=== PATIENT | female | born 1980 ===

== ENCOUNTER 2016-09-19 19:12 | Emergency (ER) | payer OTHER ==
[2016-09-19 19:28] VITALS: BP 121/84; PULSE 59; RESP 14; TEMP 98.2; O2SAT 99
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
== END 2016-09-19 19:50 | disposition home or self-care (01) ==
LOC: CED 19:12
DX: M54.5 Low back pain (principal); V49.40XA Driver injured in collision with unspecified motor vehicles in traffic accident, initial encounter; Y92.410 Unspecified street and highway as the place of occurrence of the external cause
CPT/HCPCS: G0463-PO

== ENCOUNTER → 2018-04-26 | Outpatient (CLI) | payer OTHER | LOC: BRMIMAGING 09:22 | PROVIDERS: ATTEND Obstetrics & Gynecology | DX: N64.4 Mastodynia (principal) | CPT/HCPCS: 76641-PO ==